=== PATIENT | female | born 1955 | race Caucasian/White ===

== ENCOUNTER 2018-03-26 07:13 | Emergency (ER) | payer OTHER ==
[~2018-03-26] VITALS: Ht 154.9 cm; Wt 49.0 kg
[2018-03-26] MEDS ORDERED: BUDE10.22 INH (07:58)
[2018-03-26] MEDS ORDERED: MESA250ER PO (07:59)
[2018-03-26] MEDS ORDERED: Prednisone20 MG PO (08:07)
== END 2018-03-26 08:15 | disposition home or self-care (01) ==
LOC: ER 07:13
DX: L23.9 Allergic contact dermatitis, unspecified cause (principal)
CPT/HCPCS: 99283; Q0177